=== PATIENT | male | born 1960 | race Caucasian/White ===

== ENCOUNTER → 2018-02-14 | Outpatient (CLI) | payer BC ==
[~2018-02-14] MED LIST: ASPIRIN 32325 MG/TAB PO; COLACE 100100 MG/CAP PO; NAPROSYN500 MG PO; PERCOCET 325 MG1 TA2 PO; PERCOCET 325 MG1 TAB PO; ZOFRAN 4MG T4 MG/TAB PO
== END ==
LOC: COL.RAD 12:49
DX: M79.646 Pain in unspecified finger(s) (principal)
CPT/HCPCS: J3301; Q9967

== ENCOUNTER → 2018-08-01 | Outpatient (CLI) | payer BC | LOC: COL.RAD 07:51 | DX: M25.542 Pain in joints of left hand (principal); M25.541 Pain in joints of right hand | CPT/HCPCS: J3301; Q9967 ==

== ENCOUNTER → 2019-01-22 | Outpatient (CLI) | payer BC | LOC: COL.RAD 01-11 13:00 | DX: M79.645 Pain in left finger(s) (principal); M79.644 Pain in right finger(s) | CPT/HCPCS: J3301; Q9967 ==

== ENCOUNTER → 2019-08-27 | Outpatient (CLI) | payer BC | LOC: COL.RAD 07:46 | DX: M18.0 Bilateral primary osteoarthritis of first carpometacarpal joints (principal) | CPT/HCPCS: J3301; Q9967 ==

== ENCOUNTER → 2020-01-04 | Outpatient (CLI) | payer BC | LOC: COL.RAD 13:06 | DX: M79.644 Pain in right finger(s) (principal) | CPT/HCPCS: J3301; Q9967 ==